=== PATIENT | male | born 1995 | race Caucasian/White ===

== ENCOUNTER → 2024-08-22 08:29 | Outpatient (REF) | payer OTHER, SELFPAY | LOC: RAD 08:29 | PROVIDERS: ATTENDING PHYSICIAN Nurse Practitioner Family | DX: F90.9 Attention-deficit hyperactivity disorder, unspecified type (principal) | CPT/HCPCS: 93005 ==

== ENCOUNTER → 2024-11-14 08:24 | Outpatient (REF) | payer OTHER, SELFPAY | LOC: RCS 08:24 | PROVIDERS: ATTENDING PHYSICIAN Internal Medicine; FAMILY PHYSICIAN Family Medicine | DX: R00.1 Bradycardia, unspecified (principal) | CPT/HCPCS: 93306 ==